=== PATIENT | female | born 1960 | race Caucasian/White ===

== ENCOUNTER 2025-01-06 15:42 | Observation (INO) ==
[2025-01-06] MEDS ORDERED: CONSULT PHARMACY - POTASSIUM & MAGNESIUM XX SCH (16:00)
[2025-01-06] MEDS ORDERED: PHARMACY CONSULT XX SCH (16:00)
[2025-01-06] MEDS: NS 1,000 ML IV 1,000 ML IV SCH (17:07)
[2025-01-06 17:29] VITALS: BMI 27.8
[2025-01-06] MEDS: LOKELMA POWDER PO SCH (17:39)
--- NOTE | 2025-01-06 17:51 | EKG ---
Test Reason : HYPERKALEMIA Blood Pressure : */* mmHG Vent. Rate : 91 BPM Atrial Rate : 91 BPM P-R Int : 194 ms QRS Dur : 88 ms QT Int : 338 ms P-R-T Axes : 43 -26 72 degrees QTc Int : 415 ms Normal sinus rhythm Poor R-wave progression Moderate voltage criteria for LVH, may be normal variant ( R in aVL , Hettinger product ) Borderline ECG No previous ECGs available Confirmed by Atif Fernández MD ([id number]) on 01/07/2025 7:53:50 AM Referred By: Confirmed By: Atif Fernández MD
[2025-01-06] MEDS: CIPRO TAB 500 MG PO SCH (20:20)
[2025-01-06] MEDS: NORCO 5/325 MG TAB PO PRN (21:29)
[2025-01-07 07:51] LABS: CREATININE 2.12 mg/dL (0.55-1.02); eGFR NON BLACK RACES 25 (>60)
[2025-01-07 07:54] LABS: MEAN PLATELET VOLUME 7.5 fL (7.4-11.0); RED CELL DISTRIBUTION WIDTH 15.1 % (11.6-16.5)
[2025-01-07] MEDS ORDERED: LOKELMA POWDER PO ONE (09:58)
[2025-01-07] MEDS: COLACE CAP 100 MG PO SCH (10:12)
[2025-01-07] MEDS: LOKELMA POWDER PO NR (10:22)
[2025-01-07 11:07] VITALS: BP 158/80; PULSE 68; RESP 20; TEMP 97.5; O2SAT 99
--- NOTE | 2025-01-09 21:25 | DR.H&P ---
H&P History & Physical for Day of: H&P Date: 01/06/25 Chief Complaint Chief Complaint: hyperkalemia acute abdominal pain History of Present Illness History of Present Illness: Patient is a 64-year-old female with a past medical history of hypothyroidism, hypertension, arthritis, presenting with acute abdominal pain and was seen in clinic due to that and was ordered labs. Labs returned that was revealing for significant hyperkalemia. Patient was then directly admitted to the hospital. She was started on IV fluids and Lokelma. EKG was also ordered. Labs/imaging: WBC 5.6, hemoglobin 10.5, platelets 359, sodium 138, potassium 6.6, creatinine 2.28, glucose 113. UA consistent with infection. Urine culture pending. CT abdomen pelvis was obtained that revealed bilateral renal atrophy. Cholelithiasis without evidence of acute cholecystitis. Patient was admitted for acute hyperkalemia, renal insufficiency, acute cystitis. She was started on IV fluids. She was given Lokelma and will treat per protocol. Monitor potassium levels. Monitor renal function. Restart home medications. Otherwise continue with current treatment plan. Continue closely monitor and follow-up labs/imaging. Time spent on clinical assessment, reviewing labs and imaging, decision making, and documentation greater than 45 minutes. Past Medical History Past Medical History: Hypertension Past Surgical History Surgical History: Hysterectomy Family History Family Medical History: Hypertension Social History Type of Tobacco Use: None Alcohol Use: None Drug Use: None Medications Home Medications: Home Medications Medication Instructions Recorded Confirmed Type ciprofloxacin HCl 500 mg tablet 500 mg PO BID 01/06/25 01/06/25 History Allergies Allergies Allergy/AdvReac Type Severity Reaction Status Date / Time No Known Drug Allergies Allergy Unknown Verified 01/09/25 10:16 Labs 01/07/25 07:26 01/07/25 07:26 Labs: Laboratory WBC 5.7 X10^3/uL (3.6-10.0) 01/07/25 07: RBC 3.06 X10^6/uL (3.5-5.4) L 01/07/25 07:26 Hgb 9.7 g/dL (12.0-16.0) L 01/07/25 07:26 Hct 28.4 % (36.0-47.0) L 01/07/25 07:26 MCV 92.9 fL (80.0-100.0) 01/07/25 07: MCH 31.6 pg (27.0-34.0) 01/07/25 07: MCHC 34.0 g/dL (33.0-35.0) 01/07/25 07: RDW 15.1 % (11.6-16.5) 01/07/25 07: Plt Count 294 X10^3/uL (150.0-450.0) 01/07/25 07: MPV 7.5 fL (7.4-11.0) 01/07/25 07: Neut % (Auto) 61.0 % (42.0-75.0) 01/07/25 07: Lymph % (Auto) 30.5 % (21.0-51.0) 01/07/25 07: [place] % (Auto) 5.8 % (0.0-13.0) 01/07/25 07: Eos % (Auto) 1.3 % (0.9-2.9) 01/07/25 07: Baso % (Auto) 1.4 % (0.2-1.0) H 01/07/25 07:26 Neut # (Auto) 3.5 x10^3/uL (2.2-4.8) 01/07/25 07: Lymph # (Auto) 1.8 X10^3/uL (1.3-2.9) 01/07/25 07:26 [place] # (Auto) 0.3 x10^3/uL (0.3-0.8) 01/07/25 07: Eos # (Auto) 0.1 x10^3/uL (0.0-0.2) 01/07/25 07: Baso # (Auto) 0.1 X10^3/uL (0.0-0.1) 01/07/25 07: Absolute Nucleated RBC 0.1 /100WBC 01/07/25 07: Sodium 134 mmol/L (136-145) L 01/07/25 07:26 Corrected Sodium TNP 01/07/25 07: Potassium 5.4 mmol/L (3.5-5.1) H 01/07/25 07: Chloride 105 mmol/L (98-107) 01/07/25 07:26 Carbon Dioxide 22.9 mmol/L (21-32) 01/07/25 07:26 BUN 28 mg/dL (7-18) H 01/07/25 07:26 Creatinine 2.12 mg/dL (0.55-1.02) H 01/07/25 07:26 Est GFR (MDRD) Af Amer 30 (>60) L 01/07/25 07:26 Est GFR (MDRD) Non-Af 25 (>60) L 01/07/25 07:26 Glucose 90 mg/dL (65-99) 01/07/25 07:26 Calcium 8.6 mg/dL (8.5-10.1) 01/07/25 07:26 Corrected Calcium TNP 01/07/25 07:26 Magnesium 1.8 mg/dL (2.0-2.9) L 01/07/25 07:26 Total Bilirubin 0.40 mg/dL (0.2-1.0) 01/07/25 07:26 AST 18 Units/L (15-37) 01/07/25 07:26 ALT 23 Units/L (12-78) 01/07/25 07:26 Alkaline Phosphatase 125 Units/L (46-116) H 01/07/25 07:26 Total Protein 7.2 g/dL (6.4-8.2) 01/07/25 07:26 Albumin 3.5 g/dL (3.4-5.0) 01/07/25 07:26 Globulin 3.7 g/dL (2.5-4.5) 01/07/25 07:26 Albumin/Globulin Ratio 0.9 Ratio (1.1-2.1) L 01/07/25 07:26 Review of Systems Constitutional: No Symptoms Reported Eyes: No Symptoms Reported ENT: No Symptoms Reported Respiratory: No Symptoms Reported Cardiovascular: No Symptoms Reported Gastrointestinal: Abdominal Pain Genitourinary: No Symptoms Reported Musculoskeletal: No Symptoms Reported Skin: No Symptoms Reported Neurological: No Symptoms Reported Physical Exam Vital Signs: Vital Signs Temperature 98.4 F Pulse Rate [Bilateral Radial] 64 Respiratory Rate 18 Blood Pressure [Right Arm] 127/62 O2 Sat by Pulse Oximetry 97 Oriented: Normal Eyes: Normal Ear: Normal Nose: Normal Throat: Normal Respiratory: Clear Throughout Cardiovascular: Normal : Normal Auscultation: Bowel Sounds: Normal Palpation: Normal Tenderness: Diffuse Skin: Normal Musculoskeletal: Normal Psychiatric: Normal Mood Description: Calm and Appropriate Affect: Normal Speech Pattern: Clear and Appropriate Assessment/Plan (1) Acute hyperkalemia: Status: Acute Plan: IVF, lokelma monitor renal function and potassium (2) Renal insufficiency: Status: Acute (3) UTI (urinary tract infection): Qualifiers: Hematuria presence: with hematuria Urinary tract infection type: acute cystitis Qualified Code(s): N30.01 - Acute cystitis with hematuria Status: Acute Review H&P Reviewed: Yes Patient was examined?: Yes
--- NOTE | 2025-01-11 11:49 | W.DIS.FURT ---
Summary of Discharge Discharge Summary of Date Date of Exam: 01/07/25 Admission Date Date of Admission: 01/06/25 Admission Diagnosis Hospital Course: Patient is a 64-year-old female with a past medical history of hypothyroidism, hypertension, arthritis, presenting with acute abdominal pain and was seen in clinic due to that and was ordered labs. Labs returned that was revealing for significant hyperkalemia. Patient was then directly admitted to the hospital. She was started on IV fluids and Lokelma. EKG was also ordered. Labs/imaging: WBC 5.6, hemoglobin 10.5, platelets 359, sodium 138, potassium 6.6, creatinine 2.28, glucose 113. UA consistent with infection. Urine culture pending. CT abdomen pelvis was obtained that revealed bilateral renal atrophy. Cholelithiasis without evidence of acute cholecystitis. Patient was admitted for acute hyperkalemia, renal insufficiency, acute cystitis. She was started on IV fluids. She was given Lokelma. Her potassium level improved. She was feeling better and tolerating p.o. intake. She was stable for discharge home. She will follow-up with PCP in 2 days to repeat potassium levels. Labs: Laboratory Last Values WBC 5.7 X10^3/uL (3.6-10.0) 01/07/25 07:26 RBC 3.06 X10^6/uL (3.5-5.4) L 01/07/25 07:26 Hgb 9.7 g/dL (12.0-16.0) L 01/07/25 07:26 Hct 28.4 % (36.0-47.0) L 01/07/25 07: MCV 92.9 fL (80.0-100.0) 01/07/25 07:26 MCH 31.6 pg (27.0-34.0) 01/07/25 07:26 MCHC 34.0 g/dL (33.0-35.0) 01/07/25 07: RDW 15.1 % (11.6-16.5) 01/07/25 07:26 Plt Count 294 X10^3/uL (150.0-450.0) 01/07/25 07:26 MPV 7.5 fL (7.4-11.0) 01/07/25 07: Neut % (Auto) 61.0 % (42.0-75.0) 01/07/25 07:26 Lymph % (Auto) 30.5 % (21.0-51.0) 01/07/25 07:26 [place] % (Auto) 5.8 % (0.0-13.0) 01/07/25 07:26 Eos % (Auto) 1.3 % (0.9-2.9) 01/07/25 07: Baso % (Auto) 1.4 % (0.2-1.0) H 01/07/25 07:26 Neut # (Auto) 3.5 x10^3/uL (2.2-4.8) 01/07/25 07:26 Lymph # (Auto) 1.8 X10^3/uL (1.3-2.9) 01/07/25 07:26 [place] # (Auto) 0.3 x10^3/uL (0.3-0.8) 01/07/25 07:26 Eos # (Auto) 0.1 x10^3/uL (0.0-0.2) 01/07/25 07:26 Baso # (Auto) 0.1 X10^3/uL (0.0-0.1) 01/07/25 07: Absolute Nucleated RBC 0.1 /100WBC 01/07/25 07:26 Sodium 134 mmol/L (136-145) L 01/07/25 07:26 Corrected Sodium TNP 01/07/25 07:26 Potassium 5.4 mmol/L (3.5-5.1) H 01/07/25 07: Chloride 105 mmol/L (98-107) 01/07/25 07:26 Carbon Dioxide 22.9 mmol/L (21-32) 01/07/25 07:26 BUN 28 mg/dL (7-18) H 01/07/25 07:26 Creatinine 2.12 mg/dL (0.55-1.02) H 01/07/25 07:26 Est GFR (MDRD) Af Amer 30 (>60) L 01/07/25 07:26 Est GFR (MDRD) Non-Af 25 (>60) L 01/07/25 07:26 Glucose 90 mg/dL (65-99) 01/07/25 07:26 Calcium 8.6 mg/dL (8.5-10.1) 01/07/25 07:26 Corrected Calcium TNP 01/07/25 07:26 Magnesium 1.8 mg/dL (2.0-2.9) L 01/07/25 07:26 Total Bilirubin 0.40 mg/dL (0.2-1.0) 01/07/25 07:26 AST 18 Units/L (15-37) 01/07/25 07:26 ALT 23 Units/L (12-78) 01/07/25 07:26 Alkaline Phosphatase 125 Units/L (46-116) H 01/07/25 07:26 Total Protein 7.2 g/dL (6.4-8.2) 01/07/25 07:26 Albumin 3.5 g/dL (3.4-5.0) 01/07/25 07:26 Globulin 3.7 g/dL (2.5-4.5) 01/07/25 07:26 Albumin/Globulin Ratio 0.9 Ratio (1.1-2.1) L 01/07/25 07:26 Reason For Visit: HYPERKALEMIA,ARF Discharge Diagnosis All Active Problems (Updated 01/09/25 @ 10:29 by Haseeb Samson MD) Yeast infection (Acute) Abdominal spasms (Acute) Acute hyperkalemia (Acute) Cholelithiasis (Acute) Renal insufficiency (Acute) UTI (urinary tract infection) (Acute) Acute cystitis (Acute) Nephrolithiasis (Acute) Sciatic nerve pain (Acute) Right hip pain (Acute) Bursitis of right hip (Acute) Sprain of left wrist (Acute) Hypothyroidism (Acute) Elevated TSH (Acute) Annual physical exam (Acute) Intertrigo (Acute) Meralgia paresthetica (Acute) Onychomycosis (Acute) Left wrist pain (Acute) Plan of Treatment: Continue with present treatment and follow up plan. Pt is to keep follow up appointment as instructed and take medications as ordered. Discharge Medications Discharge Medications: No Known Drug Allergies Allergy (Unknown, Verified 01/09/25 10:16) CONTINUE taking the following medications ciprofloxacin HCl 500 mg tablet 500 mg PO BID 01/06/25 [History] Discharge Disposition Discharge Disposition: home Discharge Condition: stable Discharge Plan Discharge Plan Hospital Course: Patient is a 64-year-old female with a past medical history of hypothyroidism, hypertension, arthritis, presenting with acute abdominal pain and was seen in clinic due to that and was ordered labs. Labs returned that was revealing for significant hyperkalemia. Patient was then directly admitted to the hospital. She was started on IV fluids and Lokelma. EKG was also ordered. Labs/imaging: WBC 5.6, hemoglobin 10.5, platelets 359, sodium 138, potassium 6.6, creatinine 2.28, glucose 113. UA consistent with infection. Urine culture pending. CT abdomen pelvis was obtained that revealed bilateral renal atrophy. Cholelithiasis without evidence of acute cholecystitis. Patient was admitted for acute hyperkalemia, renal insufficiency, acute cystitis. She was started on IV fluids. She was given Lokelma. Her potassium level improved. She was feeling better and tolerating p.o. intake. She was stable for discharge home. She will follow-up with PCP in 2 days to repeat potassium levels. Patient Disposition: 01 HOME, SELF-CARE Condition: Stable Health Concerns: Post Hospitalization: new medications and changes needed to prevent readmission or further decline. Pt educated and given instructions on all concerns. Care Plan Goals: Problem: Pain/Alteration in Comfort Goal: Improve/ Resolve Pain; Achieve Pain Tolerance Instructions: Take pain medications as prescribed. Contact your primary care provider if your pain is unrelieved or worsens. Follow up with primary care provider as directed. Plan of Treatment: Continue with present treatment and follow up plan. Pt is to keep follow up appointment as instructed and take medications as ordered. Prescription drug monitoring program results: PDMP reviewed and no concerns identified Prescriptions: Continued oxycodone 5 mg tablet 5 mg PO TID MDD 3 PRN (Reason: pain) 7 Days Qty: 21 0RF tamsulosin [Flomax] 0.4 mg capsule 0.4 mg PO QDAY 30 Days Qty: 30 0RF Rx Instructions: PT STATES " I DON'T THIS ANY MORE " amlodipine 10 mg tablet 10 mg PO QDAY 30 Days Qty: 30 3RF Rx Instructions: PT STATES " I DONT TAKE THIS ANY MORE " atorvastatin [Lipitor] 10 mg tablet 10 mg PO QHS 30 Days Qty: 30 3RF levothyroxine [Synthroid] 25 mcg tablet 25 mcg PO QDAY 30 Days Qty: 30 3RF lisinopril 40 mg tablet 40 mg PO QDAY Qty: 90 0RF ciprofloxacin HCl 500 mg tablet 500 mg PO BID No Action sucralfate [Carafate] 1 gram tablet 1 g PO QAC 10 Days Qty: 30 0RF fluconazole 150 mg tablet 150 mg PO Q3D Qty: 2 0RF dicyclomine 10 mg capsule 10 mg PO TID 10 Days Qty: 30 0RF Orders to Discharge Patient Discharge Orders: Discharge (Routine); Ordered 01/07/25 Ordered By: Yue Lang Follow ups/Referrals Follow ups/Referrals: Haseeb Samson MD [Primary Care Provider, MEDICAL] - 01/09/25 10:15 am Instructions Instructions: Hyperkalemia, [id number], Not Eating Enough Protein, Fat, and Calories (Protein-Energy Malnutrition): What to Know Stand Alone Forms: Excuse From Work or School, Find Help Web Site, Post Hospital Follow Up Care Print Language: PERUVIAN
== END 2025-01-07 10:50 | disposition home or self-care (01) ==
LOC: MED/SURG
PROVIDERS: ADMIT Family Medicine; ATTEND Family Medicine
DX: E03.8 Other specified hypothyroidism; K80.80 Other cholelithiasis without obstruction; R10.84 Generalized abdominal pain; E83.42 Hypomagnesemia; D64.89 Other specified anemias; R94.4 Abnormal results of kidney function studies; N30.01 Acute cystitis with hematuria; N17.8 Other acute kidney failure; I10 Essential (primary) hypertension; N28.9 Disorder of kidney and ureter, unspecified; E87.5 Hyperkalemia; E87.1 Hypo-osmolality and hyponatremia; M19.90 Unspecified osteoarthritis, unspecified site; R74.8 Abnormal levels of other serum enzymes